=== PATIENT | male | born 1935 | race Two or more races ===

== ENCOUNTER 2020-09-26 07:04 | Day surgery (SDC) | payer MEDICARE, MEDICAID ==
[~2020-09-26] VITALS: Ht 180.3 cm; Wt 77.3 kg
[2020-09-26 07:47] VITALS: BP 146/72
[2020-09-26] MEDS ORDERED: INSU100V8 SQ (08:18)
[2020-09-26] MEDS ORDERED: OMEP-110 PO (08:18)
[2020-09-26] MEDS ORDERED: ENAL10TA9 PO (08:18)
[2020-09-26] MEDS ORDERED: SUCR1TAB PO (08:18)
[2020-09-26] MEDS ORDERED: CHLORHEXIDINE 15 ML UDC ONE (08:28)
[2020-09-26] MEDS ORDERED: CHLORHEXIDINE 15 ML UDC MM ONE (08:30)
[2020-09-26] MEDS ORDERED: LACTATED RINGERS 1,000 ML IV SCH (08:30)
[2020-09-26] MEDS ORDERED: PROPOFOL 10 MG/ML, 20ML ONE (08:56)
[2020-09-26] MEDS ORDERED: DEXAMETHASONE 4 MG/ML, 1ML ONE (08:56)
[2020-09-26 09:05] LABS: ALANINE AMINOTRANSFERASE 19 U/L (12-78); ALBUMIN 3.3 g/dL (3.4-5.0); ANION GAP 6 mmol/L (5-15); CALCIUM 8.8 mg/dL (8.5-10.1); CHLORIDE 112 mmol/L (98-107)
[2020-09-26 09:07] LABS: ALKALINE PHOSPHATASE 70 U/L (45-117); BILIRUBIN,TOTAL 0.8 mg/dL (0.2-1.0); TOTAL PROTEIN 6.1 g/dL (6.4-8.2)
[2020-09-26] MEDS ORDERED: MIDAZOLAM 1 MG/ML, 2ML IV PRN (09:30)
[2020-09-26] MEDS ORDERED: MEPERIDINE/PF 25MG/0.5ML IVPush PRN (09:30)
[2020-09-26] MEDS ORDERED: ONDANSETRON 2MG/ML, 2ML IVPush PRN (09:30)
[2020-09-26] MEDS ORDERED: hydrALAzine 20 MG/ML, 1ML IV PRN (09:30)
[2020-09-26] MEDS ORDERED: OXYcodone 5 MG/5 ML ORAL.SOL UDC PO PRN (09:30)
[2020-09-26] MEDS ORDERED: ALBUTEROL SULFATE 2.5 MG/3 ML NPPB PRN (09:30)
[2020-09-26] MEDS ORDERED: DIAZEPAM 5 MG/ML, 2ML IVPush PRN (09:30)
[2020-09-26] MEDS ORDERED: PROMETHAZINE 25 MG/ML, 1ML IVPush PRN (09:30)
[2020-09-26] MEDS ORDERED: LABETALOL 5MG/ML, 20ML IV PRN (09:30)
[2020-09-26] MEDS ORDERED: FENTANYL PF 100 MCG/2ML IV PRN (09:30)
[2020-09-26] MEDS ORDERED: EPHEDRINE 50 MG/ML, 1ML IVPush PRN (09:30)
[2020-09-26] MEDS ORDERED: PROMETHAZINE 12.5 MG SUPP PR PRN (09:30)
[2020-09-26] MEDS ORDERED: DIPHENHYDRAMINE 50 MG/ML, 1ML IVPush PRN (09:30)
[2020-09-26] MEDS ORDERED: HYDROmorphone 1 MG/ML, 1ML INJ IVPush PRN (09:30)
== END 2020-09-26 10:40 | disposition home or self-care (01) ==
LOC: OUT 07:04
PROVIDERS: ATTEND Internal Medicine Gastroenterology
DX: R19.4 Change in bowel habit (principal); D12.7 Benign neoplasm of rectosigmoid junction; K64.1 Second degree hemorrhoids; E11.9 Type 2 diabetes mellitus without complications; I10 Essential (primary) hypertension; K21.9 Gastro-esophageal reflux disease without esophagitis; Z20.822 Contact with and (suspected) exposure to COVID-19; Z79.4 Long term (current) use of insulin; Z79.899 Other long term (current) drug therapy; Z87.891 Personal history of nicotine dependence; Z83.3 Family history of diabetes mellitus; Z98.890 Other specified postprocedural states
CPT/HCPCS: 45380; 80053; 82962; 87635; 88305; 93005; J1100; J2704; J7120